=== PATIENT | female | born 2000 | race Caucasian/White ===

== ENCOUNTER 2025-04-14 07:30 | Inpatient (IN) | payer OTHER ==
[2025-04-14] VITALS (17 sets, daily range): BP systolic 93–123; BP diastolic 47–79
[~2025-04-14] VITALS: Ht 154.9 cm; Wt 104.5 kg
[2025-04-14] MEDS ORDERED: Carboprost Tromethamine 250 MCG/ML 1ML Amp IM PRN (08:10)
[2025-04-14] MEDS ORDERED: Ondansetron HCl 2 MG / ML 2ML Vial IV PRN ×2 (08:10→12:10)
[2025-04-14] MEDS ORDERED: Tranexamic Acid 100 ML IV SCH (08:10)
[2025-04-14] MEDS ORDERED: CeFAZolin Sodium 3,000 MG in NS 100 ML IV SCH (08:10)
[2025-04-14] MEDS ORDERED: Oxytocin 10 Unit / ML Vial IM PRN (08:10)
[2025-04-14] MEDS ORDERED: OXYTOCIN/RINGER'S LACTATE 500 ML IV PRN (08:10)
[2025-04-14] MEDS ORDERED: Citric Acid/Sodium Citrate 30 ML BTL PO SCH (08:10)
[2025-04-14] MEDS ORDERED: Methylergonovine Maleate 0.2MG / ML 1ML Amp IM PRN ×2 (08:10→12:05)
[2025-04-14] MEDS ORDERED: Metoclopramide HCl 5MG / ML 2ML Vial IV ONE (08:15)
[2025-04-14 09:05] LABS: BASOPHILS ABSOLUTE AUTO 0.04 K/mm3 (0.00-0.23); BASOPHILS PERCENT AUTO 1 % (0-2); EOSINOPHILS ABSOLUTE AUTO 0.13 K/mm3 (0.00-0.68); EOSINOPHILS PERCENT AUTO 2 % (0-6); Hematocrit 32.3 % (33.0-51.0); Hemoglobin 10.2 g/dL (11.5-16.0); IMMATURE GRAN ABSOLUTE AUTO 0.03 K/mm3 (0.00-0.10); IMMATURE GRAN PERCENT AUTO 0 % (0-1); LYMPHOCYTES ABSOLUTE AUTO 1.68 K/mm3 (0.84-5.20); LYMPHOCYTES PERCENT AUTO 20 % (21-46); MONOCYTES ABSOLUTE AUTO 0.56 K/mm3 (0.16-1.47); MONOCYTES PERCENT AUTO 7 % (4-13); Mean Corpuscular HGB Conc 31.6 g/dL (31.5-36.5); Mean Corpuscular Volume 74 fL (80-100); NEUTROPHILS ABSOLUTE AUTO 5.90 K/mm3 (1.96-9.15); NEUTROPHILS PERCENT AUTO 71 % (41-73); NRBC ABSOLUTE 0.00 K/mm3 (0.00-0.02); NRBC Auto 0.0 /100 WBC (0.0-0.2); Platelet Count 219 K/mm3 (150-400); RDW Coefficient Variation 17.2 % (11.7-14.2); RDW Standard Deviation 45.4 fL (35.1-46.3)
[2025-04-14] MEDS ORDERED: PRENATAL TABLE1 EAC2 PO (09:13)
[2025-04-14] MEDS ORDERED: IRON18 M1 PO (09:13)
[2025-04-14] MEDS ORDERED: Metoclopramide HCl 5MG / ML 2ML Vial ONE (09:23)
[2025-04-14] MEDS ORDERED: FentaNYL Citrate 50 MCG/ML 2 ML Injection ONE (10:39)
[2025-04-14] MEDS ORDERED: Phenylephrine HCl 100 MCG/ML-NS 10MLSYR (1MG/10ML) ONE ×2 (10:40→11:06)
[2025-04-14] MEDS ORDERED: Ketorolac Tromethamine 30mg Vial ONE ×2 (10:40→11:40)
[2025-04-14] MEDS ORDERED: Oxytocin 10 Unit / ML Vial ONE (10:40)
[2025-04-14] MEDS ORDERED: Dexamethasone Sod Phos 10 MG/ML 1ML VIAL ONE (10:40)
[2025-04-14] MEDS ORDERED: Ondansetron HCl 2 MG / ML 2ML Vial ONE (10:40)
--- NOTE | 2025-04-14 11:48 | NUR ---
04/14/25 1148 Dorene Evangelista FHT 130'S. VIABLE FEMALE DELIVERED VIA REPEAT SECTION. 06/16 APGARS WEIGHT 7LBS,12OZ. CORD BLOOD COLLECTED AND SENT WITH BABY RN. NO GASSES PER MD. SEE POST OP NOTES FOR OPERATIVE DETAILS.
[2025-04-14] MEDS ORDERED: Magnesium Hydroxide Conc 10 ML UDC PO PRN (12:10)
[2025-04-14] MEDS ORDERED: OXYTOCIN/RINGER'S LACTATE 500 ML IV SCH (12:15)
[2025-04-14] MEDS ORDERED: Ketorolac Tromethamine 30mg Vial IV SCH (13:00)
[2025-04-15 00:39] VITALS: BP 120/64
[2025-04-15 05:18] VITALS: BP 117/69
[2025-04-15 06:14] LABS: BASOPHILS ABSOLUTE AUTO 0.03 K/mm3 (0.00-0.23); BASOPHILS PERCENT AUTO 0 % (0-2); EOSINOPHILS ABSOLUTE AUTO 0.09 K/mm3 (0.00-0.68); EOSINOPHILS PERCENT AUTO 1 % (0-6); Hematocrit 28.0 % (33.0-51.0); Hemoglobin 8.8 g/dL (11.5-16.0); IMMATURE GRAN ABSOLUTE AUTO 0.08 K/mm3 (0.00-0.10); IMMATURE GRAN PERCENT AUTO 1 % (0-1); LYMPHOCYTES ABSOLUTE AUTO 2.44 K/mm3 (0.84-5.20); LYMPHOCYTES PERCENT AUTO 21 % (21-46); MONOCYTES ABSOLUTE AUTO 0.92 K/mm3 (0.16-1.47); MONOCYTES PERCENT AUTO 8 % (4-13); Mean Corpuscular HGB Conc 31.4 g/dL (31.5-36.5); Mean Corpuscular Volume 75 fL (80-100); NEUTROPHILS ABSOLUTE AUTO 8.02 K/mm3 (1.96-9.15); NEUTROPHILS PERCENT AUTO 69 % (41-73); NRBC ABSOLUTE 0.00 K/mm3 (0.00-0.02); NRBC Auto 0.0 /100 WBC (0.0-0.2); Platelet Count 190 K/mm3 (150-400); RDW Coefficient Variation 17.2 % (11.7-14.2); RDW Standard Deviation 46.4 fL (35.1-46.3)
[2025-04-15 08:57] VITALS: BP 120/69
[2025-04-15] MEDS ORDERED: Prenatal Vit/FE Fumarate/FA 1 Tab PO SCH (09:00)
[2025-04-15 12:13] VITALS: BP 132/66
[2025-04-15 16:26] VITALS: BP 130/72
[2025-04-15 19:31] VITALS: BP 122/70
[2025-04-16 00:48] VITALS: BP 120/67
[2025-04-16 04:41] VITALS: BP 120/76
[2025-04-16 07:56] VITALS: BP 125/81
[2025-04-16 13:06] VITALS: BP 121/79
--- NOTE | 2025-04-17 10:57 | NUR ---
UPDATE OR CHARTING PER RN
== END 2025-04-16 13:25 | disposition home or self-care (01) | DRG 788 ==
LOC: BC 07:42
PROVIDERS: ADMIT Obstetrics & Gynecology
PROC: 10D00Z1 Extraction of Products of Conception, Low, Open Approach (ICD-10-PCS; principal; 2025-04-14 10:30)
DX: O34.211 Maternal care for low transverse scar from previous cesarean delivery (principal); Z3A.39 39 weeks gestation of pregnancy; Z37.0 Single live birth; O99.344 Other mental disorders complicating childbirth; F41.8 Other specified anxiety disorders; O99.214 Obesity complicating childbirth; E66.01 Morbid (severe) obesity due to excess calories
CPT/HCPCS: 36415; 85025; A9270; J0690; J1100; J1885; J2371; J2405; J2590; J2765; J3010; J7120